=== PATIENT | female | born 1940 | race Caucasian/White ===

== ENCOUNTER 2023-02-12 14:38 | Emergency (ER) | payer MEDICARE, SELFPAY ==
[2023-02-12 15:04] VITALS: BP 144/64; PULSE 89; RESP 18; TEMP 37.8; O2SAT 94; BMI 25.6
[2023-02-12 15:42] VITALS: PULSE 86; RESP 18; O2SAT 94
[2023-02-12 15:43] VITALS: BP 150/66
--- NOTE | 2023-02-12 15:50 | ED_ITS ---
HPI - URI/Sore Throat <REZA Desir - Last Filed: 02/12/23 16:04> General Chief Complaint: Upper Respiratory Symptoms Stated Complaint: runny nose, coughing, sneezing, x3 days Time Seen by Provider: 02/12/23 15:21 Source: patient Mode of arrival: Ambulatory History of Present Illness HPI Narrative: This is an 82-year-old female presents to the emergency department complaining of watering eyes, congestion, and a cough for the last 3 days. She denies having a fever, states that she was on an [employer] cruise ship in his here with her with similar symptoms, he tested positive for COVID yesterday. She wishes for Paxlovid. History of kidney disease, is not anticoagulated, denies history of COPD or smoking. She is not immunosuppressed. Denies nausea vomiting. Denies chest pain difficulty breathing, shortness of breath or productive cough. Related Data Previous Rx's Medication Instructions Recorded nirmatrelvir 300 mg (150 mg See Rx Instructions PO .COMPLEX 02/12/23 x2)-ritonavir 100 mg tablet,dose #30 ea pack(EUA) (Paxlovid) Allergies Allergy/AdvReac Type Severity Reaction Status Date / Time antibiotics Allergy Uncoded 02/12/23 15:31 Review of Systems <REZA Desir - Last Filed: 02/12/23 16:04> Review of Systems ROS Unobtainable: All systems reviewed & are unremarkable except as noted in HPI and below Patient History <REZA Desir - Last Filed: 02/12/23 16:04> Social History Smoking Status: Never smoker Smoking Status: Never smoker alcohol intake frequency: holidays/special occasions only Substance Use Type: does not use Exam <REZA Desir Last Filed: 02/12/23 16:04> Narrative Exam Narrative: Reviewed vitals signs and nursing notes. General: Pleasant, sitting upright, in no acute distress, well groomed, afebrile HEENT: symmetrical facial expressions, moist mucous membranes, neck is supple CV: regular rate and rhythm, warm extremities Respiratory: Occasional cough, breath sounds are clear throughout all alfaro, normal work of breathing, without tachypnea or hypoxia. GI: abdomen soft, nondistended, without CVA tenderness bilaterally. MSK: moves all extremities, no weakness, normal tone, ambulatory without deficit Skin: brisk capillary refill, without rash or wound Neuro: clear speech and normal cognition, A&O x3, GCS 15, no focal motor or sensation deficits Initial Vital Signs Initial Vital Signs: Vital Signs Temperature 100.1 F H 02/12/23 15:04 Pulse Rate 89 02/12/23 15:04 Respiratory Rate 18 02/12/23 15:04 Blood Pressure 144/64 H 02/12/23 15:04 Pulse Oximetry 94 02/12/23 15:04 Oxygen Delivery Method Room Air 02/12/23 15:04 <Marisol Alarcon DO - Last Filed: 02/12/23 19:36> Initial Vital Signs Initial Vital Signs: Vital Signs Temperature 100.1 F H 02/12/23 15:04 Pulse Rate 89 02/12/23 15:04 Respiratory Rate 18 02/12/23 15:04 Blood Pressure 144/64 H 02/12/23 15:04 Pulse Oximetry 94 02/12/23 15:04 Oxygen Delivery Method Room Air 02/12/23 15:04 Course <Leticia Garcia, [employer] - Last Filed: 02/12/23 16:04> Orders Ordered: ED Orders 02/12/23 15:07 Covid-19 + FLU A/B + RSV - PCR Stat Vital Signs Vital signs: Vital Signs - 8 hr 02/12/23 15:04 02/12/23 15:42 02/12/23 15:43 Temperature 100.1 F H Pulse Rate 89 86 Respiratory Rate 18 18 Blood Pressure 144/64 H 150/66 H Pulse Oximetry 94 94 Oxygen Delivery Method Room Air Room Air <Marisol Alarcon DO - Last Filed: 02/12/23 19:36> Orders Ordered: ED Orders 02/12/23 15:07 Covid-19 + FLU A/B + RSV - PCR Stat Vital Signs Vital signs: Vital Signs - 8 hr 02/12/23 15:04 02/12/23 15:42 02/12/23 15:43 Temperature 100.1 F H Pulse Rate 89 86 Respiratory Rate 18 18 Blood Pressure 144/64 H 150/66 H Pulse Oximetry 94 94 Oxygen Delivery Method Room Air Room Air MDM - URI/Sore Throat <Leticia Garcia, [facility] - Last Filed: 02/12/23 16:04> Lab Data Labs: Lab Results 02/12/23 Range/Units 15:07 SARS-CoV-2 (PCR) Positive H (Negative) Influenza A (RT-PCR) Flu a negative (NEGATIVE) Influenza B (RT-PCR) Flu b negative (NEGATIVE) RSV (PCR) Negative (Negative) MDM Narrative Medical decision making narrative: Chief Complaint: Upper respiratory infection Primary historian: Patient Multiple etiologies for patient's complaint considered including, but not limited to: Acute viral illness, pneumonia, croup, asthma/reactive airway exacerbation, allergic reaction, acute otitis media, tonsillitis/pharyngitis, bronchitis, sinusitis, postnasal drip, pertussis, pneumothorax, pneumonitis Respiratory PCR: Positive for COVID-19 Do not suspect underlying cardiopulmonary process. They are nontoxic appearing and not in need of emergent medical intervention. Patient is tolerating p.o. Recommended rest, hydration, tylenol and NSAIDS for fever and/or pain. Return to ED for worsening symptoms such as SOB, chest pain, inability to take adequate oral fluids, fever, or productive cough. Her COVID test is positive, symptoms for 3 days, no history of kidney disease, heart lung disease, immunosuppression. Will treat with Paxlovid. Encouraged patient to return to emergency department for new or worsening symptoms. #65: Appropriate Treatment for Patients with URI x] The patient was diagnosed with upper respiratory infection and was not prescribed or dispensed an antibiotic. [SATISFIES MIPS PERFORMANCE] [] The patient has competing comorbid condition within the last 12 months. The comorbid condition was [] (e.g., neutropenia, cystic fibrosis, chronic bronchitis, pulmonary edema, respiratory failure, rheumatoid lung disease). [MIPS PERFORMANCE EXCEPTION/EXCLUSION] [] The patient is already on antibiotics, or has taken them within the last 30 days. [MIPS PERFORMANCE EXCEPTION/EXCLUSION] [] The patient had a competing diagnosis of [] (e.g. acute otitis media, chronic sinusitis, cellulitis, UTI, etc.). [MIPS PERFORMANCE EXCEPTION/EXCLUSION] [] The patient was diagnosed with upper respiratory infection and was prescribed or dispensed an antibiotic. [DOES NOT SATISFY MIPS PERFORMANCE] I have independently reviewed the patient's vital signs and nursing notes as well as prior records if available. Social considerations that may affect disposition: none Questions are addressed and there is agreement with the plan and for follow-up. I consulted with the ED attending physician Dr. Alarcon as needed for higher level of care considerations and they were available for discussion and recommendations regarding plan of care and diagnostic testing. Patient is appropriate for outpatient management. <Marisol Dudley Agnes, DO - Last Filed: 02/12/23 19:36> Lab Data Labs: Lab Results 02/12/23 Range/Units 15:07 SARS-CoV-2 (PCR) Positive H (Negative) Influenza A (RT-PCR) Flu a negative (NEGATIVE) Influenza B (RT-PCR) Flu b negative (NEGATIVE) RSV (PCR) Negative (Negative) Discharge Plan Departure Patient Disposition: Home Clinical Impression: COVID-19 Instructions: COVID-19 Activity Restrictions/Additional Instructions: *You have been diagnosed with COVID illness. Please pickle cutter your medications, finish the full course. If you are on atorvastatin, please hold this medication. Stay well hydrated, Tylenol for fever/pain, and can take [id number] medications like Zyrtec for congestion or Mucinex for productive cough. I gave your a prescription of these if you need for your symptoms. If you begin to feel short of breath or develop chest pain, please seek medical evaluation. *What to do: *Please continue to take your regular medications as directed. [x ] New medication prescriptions sent to your pharmacy: [ [facility]] [ ] New medication written as a paper prescription [ ] No new medications given *Please call and schedule follow up with your primary care provider in 2-3 days, at least for an update. Let them know you were seen in the Emergency Department for the above problem. We will electronically transmit a record of today's note if your PCP or specialist is in our system. *If you do not have a primary care provider please contact [phone] to establish care with one of the [facility] primary care providers. *Return to the Emergency Department for worsening symptoms, inability to keep liquids down, fever greater than 101F, chills, or other concerning symptom. Prescriptions: New Paxlovid (EUA) 300 mg (150 mg x 2)-100 mg tablets,dose pack See Rx Instructions .ROUTE .COMPLEX Qty: 30 0RF Rx Instructions: take TWO 150 mg tablets of nirmatrelvir with ONE 100 mg tablet of ritonavir twice daily for 5 days Stand Alone Forms: Patient Portal/API <Marisol Alarcon, - Last Filed: 02/12/23 19:36> Cosign ED Attending Cosignature Attestation: I was immediately available in the department for consultation. Documentation has been reviewed.
[2023-02-12 15:54] LABS: Influenza A - CEPHEID Flu A NEGATIVE (NEGATIVE); Influenza B - CEPHEID Flu B NEGATIVE (NEGATIVE); Respiratory Syncytial Virus Negative (Negative)
[2023-02-12 15:58] LABS: COVID-19 CEPHEID 4-PLEX PCR POSITIVE (Negative)
== END 2023-02-12 16:03 | disposition home or self-care (01) ==
PROVIDERS: Emergency Medicine; Emergency Provider Nurse Practitioner Critical Care Medicine
DX: U07.1 COVID-19 (principal)
CPT/HCPCS: 0241U; 99281; 99282